=== PATIENT | male | born 1985 | race Caucasian/White ===

== ENCOUNTER 2020-11-17 20:50 | Emergency (ER) | payer SELFPAY ==
[~2020-11-17] VITALS: Ht 198.1 cm; Wt 117.0 kg
[2020-11-17 22:58] VITALS: BP 130/90
== END 2020-11-17 23:00 | disposition home or self-care (01) ==
LOC: ER 20:50
DX: T51.0X1A Toxic effect of ethanol, accidental (unintentional), initial encounter (principal); Y92.89 Other specified places as the place of occurrence of the external cause; J45.909 Unspecified asthma, uncomplicated
CPT/HCPCS: 99283